=== PATIENT | female | born 1970 | race Caucasian/White ===

== ENCOUNTER 2016-12-28 09:09 | Observation (INO) | payer OTHER ==
--- NOTE | ~2016-12-28 | DS ---
Discharge Summary [facility] [address] [place]. [address] NAME: RENEE SQUIRES : 70 STATUS : DIS Karoline PAT#: [id number] AGE: 46 ADM/REG DATE : 12/28/16 MR#: [id number] REPORT SERV DATE: 12/30/16 DICTATED BY: ARTEMIO MARQUEZ DATE: 12/29/16 REPORT STATUS : Draft TRANSCRIBED BY: MODDeepika DATE: 12/29/16 ADMISSION DATE: 12/28/2016 DISCHARGE DATE: 12/29/2016 DISCHARGE DIAGNOSES: 1. Chest pain. 2. Coronary artery disease. 3. Chronic kidney disease stage IV, most recent creatinine 2.02. 4. Hypertension. 5. Hyperlipidemia. 6. History of nonalcoholic steatohepatitis. 7. History of gout. 8. Diabetes type 2, that is diet controlled. DISCHARGE MEDICATIONS: Allopurinol 100 mg daily; Norvasc 5 mg daily, prescription written for this; Trilipix 135 mg daily; vitamin B12 250 mg two tablets daily; Cardura 4 mg daily; Ativan 0.5 mg at bedtime; Remeron 15 mg at bedtime; Singulair 10 mg daily; [place]-3 fatty acid 2000 mg twice a day; Zoloft 50 mg daily; hydralazine 50 mg twice a day; CoQ10 over-the- counter tablet daily; Zofran 4 mg every eight hours p.r.n. for nausea; Lasix 20 mg p.r.n.; aspirin 81 mg daily; Brilinta 90 mg p.o. twice a day; Lipitor 40 mg at bedtime. HISTORY OF PRESENT ILLNESS: This is a very pleasant, 46-year-old, white female who originally presented to [facility] with complaints of some atypical chest pain, chest discomfort, and left shoulder pain. Please see initial H and P of Hospitalist, Shaina Sweeney. This patient was admitted to the Hospitalist Service for further evaluation and treatment. CONSULTS DURING THIS ADMISSION: 1. Nephrology, Dr. Kory Laughlin. 2. [facility]. The patient had an intermediate risk stress test performed and was transferred to [facility] for heart catheterization. Please see the discharge summary of Dr. Tito Godfrey. HOSPITAL COURSE: I began seeing the patient here at [facility] on 12/28/2016, status post her heart catheterization where a drug-eluting stent had been placed to her LAD. Given her significant chronic kidney disease, Nephrology followed her closely here. She was given some IV hydration post heart catheterization, and her lab work was followed closely, but her creatinine actually remained stable, trended downward. Blood pressures have been somewhat elevated, and she has been treated with the addition of some Norvasc to her overall regimen, and she will have a prescription for this at discharge. She recovered well from heart catheterization, was monitored in the cardiac short-stay overnight and was felt safe for discharge home on 12/29/2016. To follow up with [facility] outpatient and followup her primary care. She also is followed by Dr. Price Reyes and I have instructed her to keep her prior followup appointments with him as well and she will also follow up with Cardiology, Dr. Curtis in one month. Overall, questions were answered at bedside. The patient was in agreement with this plan going forward. Please note, greater than 30 minutes Discharge Summary [address] [address] NAME: RENEE SQUIRES : 70 STATUS : DIS Karoline PAT#: [id number] AGE: 46 ADM/REG DATE : 12/28/16 MR#: [id number] REPORT SERV DATE: 12/30/16 DICTATED BY: ARTEMIO MARQUEZ DATE: 12/29/16 REPORT STATUS : Draft TRANSCRIBED BY: JEN DATE: 12/29/16 was spent on this discharge for medication teaching, followup planning, and further disposition. MENDOZA/JEN Artemio Marquez NP / [id number] CC: Faye Gallagher M.D.
[~2016-12-28 09:09] MED LIST: ACET500CAP PO; ALLEGRA180 PO; APRES50 PO; ASAB PO; ATV.5 PO; B12250T PO; BIOTENE PO; CALC PO; CARDU2; CARDU2 PO; CO-Q 10 PO; CO-Q-10 OTC PO; COZAAR100 MG PO; FIOR PO; FISH-EPA1000 MG PO; HALF81 PO; JANUVIA100 MG PO; L20 PO; MAG PO; MULTIPLE VIT PO; MULTIVIT/MIN PO; OCEAN NAS; REM15 PO; SINGULAIR1 PO; TEARS PURE OPH; TRILIPIX135 MG PO; VITAMIN B-121000 MC1 PO; VYTORIN 10/20 T1 TAB PO; Z300 PO; ZIAC5 PO; ZINC OTC PO; ZOCOR20 PO; ZOFRAN4 PO; ZOL50 PO; [UNRECOGNIZED DRUG - OTHER] INH; [UNRECOGNIZED DRUG - OTHER] PO
[2016-12-28 17:59] LABS: CPK 68 U/L (0-200)
[2016-12-28 18:00] LABS: CK-MB 1.9 NG/ML
[2016-12-29 03:26] LABS: BASOPHILS 0.6 %; BASOPHILS ABSOLUTE 0.03 10/3/uL (0.0-0.16); EOSINOPHILS 3.3 %; EOSINOPHILS ABSOLUTE 0.16 10/3/uL (0.0-0.53); HEMATOCRIT 31.8 % (36.0-48.0); HEMOGLOBIN 10.7 g/dL (12.0-16.0); IMMATURE GRANULOCYTES 0.4 %; IMMATURE GRANULOCYTES ABSOLUTE 0.02 10/3/uL (0.0-0.11); LYMPHOCYTES 30.9 %; LYMPHOCYTES ABSOLUTE 1.51 10/3/uL (0.67-4.30); MEAN PLATELET VOLUME 10.4 fL (9.2-13.0); MONOCYTES 5.3 %; MONOCYTES ABSOLUTE 0.26 10/3/uL (0.21-1.20); NEUTROPHILS 59.5 %; PLATELET COUNT 125 10/3/uL (150-400); RBC DISTRIBUTION WIDTH 14.1 % (12.0-16.0); RED CELL COUNT 3.15 10/6/uL (4.0-5.6); WHITE BLOOD CELLS 4.9 10/3/uL (4.5-10.5)
[2016-12-29 03:28] LABS: MANUAL DIFF NO %; MEAN CORPUS HGB CONC 33.6 g/dL (32.0-36.0)
[2016-12-29 03:43] LABS: ALBUMIN 3.1 G/DL (3.5-5.0); BUN (BLOOD UREA NITROGEN) 31 MG/DL (6-23); CALCIUM, SERUM 8.9 MG/DL (8.5-10.4); CHLORIDE, SERUM 109 MMOL/L (96-112); CK-MB 6.3 NG/ML; CO2 (CARBON DIOXIDE) 24 MMOL/L (24-34); CREATININE 2.02 MG/DL (0.55-1.02); GFR AFRICAN AMERICAN 33 ML/MIN (>=60); GFR NON AFRICAN AMERICAN 29 ML/MIN (>=60); GLUCOSE, SERUM 100 MG/DL (60-99); PHOSPHORUS, SERUM 3.7 MG/DL (2.5-4.5); POTASSIUM, SERUM 4.3 MMOL/L (3.5-5.3); SODIUM, SERUM 142 MMOL/L (135-148)
[2016-12-29 03:44] LABS: CKMB INDEX (NOT ORD) 6.1; CPK 104 U/L (0-200)
[2016-12-29] MEDS ORDERED: NORV5 PO (10:37)
[2016-12-29] MEDS ORDERED: LIPITOR40 PO (10:39)
[2016-12-29] MEDS ORDERED: BRILINTA90 MG PO (10:39)
[2016-12-29] MEDS ORDERED: ASAB PO (10:39)
[2016-12-29] MEDS ORDERED: LOP25 PO (10:40)
== END 2016-12-29 11:55 | disposition home or self-care (01) ==
LOC: CORLMH 09:09 → SSU2 10:48
PROVIDERS: Internal Medicine Cardiovascular Disease
DX: I25.110 Atherosclerotic heart disease of native coronary artery with unstable angina pectoris (principal); I12.9 Hypertensive chronic kidney disease with stage 1 through stage 4 chronic kidney disease, or unspecified chronic kidney disease; E11.22 Type 2 diabetes mellitus with diabetic chronic kidney disease; E78.5 Hyperlipidemia, unspecified; Z88.0 Allergy status to penicillin; Z88.5 Allergy status to narcotic agent; Z88.8 Allergy status to other drugs, medicaments and biological substances; Z79.899 Other long term (current) drug therapy
CPT/HCPCS: 80069; 82550; 82553; 85025; 93005; 93458; 99152; 99153; A9270-GY; C1725; C1769; C1874; C1894; C9600; G0378; J0583; J2250; J3010; Q9967